=== PATIENT | male | born 1955 | race Caucasian/White ===

== ENCOUNTER 2018-09-29 10:20 | Emergency (ER) | payer MEDICAID ==
[~2018-09-29] VITALS: Ht 180.3 cm; Wt 72.6 kg
--- NOTE | 2018-09-29 10:30 | NUR ---
C/O BACK PAIN X 1 MONTH. AA/OX4, BREATHING EVEN AND UNLABORED, NO SOB NOTED, ATTACHED TO THE MONITOR. KEPT COMFORTABLE. NO DSITRESS.
[2018-09-29] MEDS ORDERED: MORPHINE SULFATE INJ 2 MG/ML DISP.SYRIN ONE (10:56)
[2018-09-29] MEDS ORDERED: ONDANSETRON HCL/PF 4 MG/2 ML VIAL ONE (10:56)
[2018-09-29] MEDS ORDERED: KETOROLAC TROMETHAMINE INJ 30 MG/ML VIAL ONE (10:56)
[2018-09-29] MEDS ORDERED: MORPHINE SULFATE INJ 2 MG/ML DISP.SYRIN IV ONE (11:00)
[2018-09-29] MEDS ORDERED: KETOROLAC TROMETHAMINE INJ 30 MG/ML VIAL IV ONE (11:00)
[2018-09-29] MEDS ORDERED: ONDANSETRON HCL/PF 4 MG/2 ML VIAL IV ONE (11:00)
[2018-09-29] MEDS ORDERED: LORAZEPAM INJ 2 MG/ML VIAL IV ONE (12:00)
[2018-09-29] MEDS ORDERED: LORAZEPAM INJ 2 MG/ML VIAL ONE (12:16)
--- NOTE | 2018-09-29 12:35 | NUR ---
PATIENT DENIES PAIN AT THIS TIME, PER PATIENT HE'S NOT DRIVING. IV removed. Catheter intact and site benign. Pressure and 4x4 applied to site. No bleeding noted. Patient discharged to home in stable condition. Written and verbal after care instructions given. Patient verbalizes understanding of instruction. Addendum: 09/29/18 at 1235 by ROALCANCES DENIES FEELING DIZZY. NO ASE NOTED. Ambulatory with a steady gait.
[2018-09-29 12:36] VITALS: BP 157/100
== END 2018-09-29 12:37 | disposition home or self-care (01) ==
LOC: ER 10:20
DX: M54.42 Lumbago with sciatica, left side (principal); I10 Essential (primary) hypertension
CPT/HCPCS: 72100; 96374; 96375; 99283; J1885; J2060; J2270; J2405